=== PATIENT | male | born 1965 | race Caucasian/White ===

== ENCOUNTER 2023-01-02 13:29 | Emergency (ER) | payer SELFPAY ==
[2023-01-02 14:38] LABS: HEMATOCRIT 48.6 % (40.0-54.0); HEMOGLOBIN 16.8 g/dL (13.0-18.0); MEAN CORPUSCULAR HEMOGLOBIN 29.6 pg (27.0-32.0); MEAN CORPUSCULAR HGB CONC 34.6 g/dL (31.0-35.0); MEAN PLATELET VOLUME 9.9 fL (6.0-10.0); RED BLOOD CELL COUNT 5.67 M/uL (4.50-6.50); RED CELL DISTRIBUTION WIDTH 13.3 % (11.0-16.0); WHITE BLOOD CELL COUNT,WBC 19.4 K/uL (4.0-11.0)
[2023-01-02 14:57] LABS: ANION GAP 12.9 mmol/L (5.0-15.0); BLOOD UREA NITROGEN,BUN 29 mg/dL (8-26); BUN/CREATININE RATIO 22.8 (6-25); CALCIUM 10.4 mg/dL (8.5-10.1); CARBON DIOXIDE,CO2 27.9 mmol/L (21.0-32.0); CHLORIDE,CL 101 mmol/L (98-107); CREATININE 1.27 mg/dL (0.70-1.30); ESTIMATED GFR 66 mL/min (>60); GLUCOSE RANDOM 149 mg/dL (74-100); POTASSIUM,K 4.8 mmol/L (3.5-5.1); SODIUM,NA 137 mmol/L (136-145)
[2023-01-02] MEDS ORDERED: Iopamidol 612 MG/ML 100 ML Bottle IV PRN (15:13)
[2023-01-02] MEDS ORDERED: Sodium Chloride 0.9% 50 ML SDV FLUSH SCH (15:15)
[2023-01-02] MEDS ORDERED: Sodium Chloride 0.9% 1,000 ML IV SCH (15:15)
== END 2023-01-02 16:45 | disposition home or self-care (01) ==
LOC: LB.ED 13:29
DX: R04.2 Hemoptysis (principal); F17.200 Nicotine dependence, unspecified, uncomplicated; Z88.0 Allergy status to penicillin; Z79.01 Long term (current) use of anticoagulants
CPT/HCPCS: 36415; 71046; 71260; 80048; 85027; 96360; 99285-25; J3490; J7030; Q9967

== ENCOUNTER 2023-02-08 12:32 | Emergency (ER) | payer MEDICAID ==
[2023-02-08] MEDS ORDERED: fentaNYL 100 MCG/2 ML SDV IVPUSH PRN (13:11)
[2023-02-08 13:12] LABS: HEMATOCRIT 47.7 % (40.0-54.0); HEMOGLOBIN 16.3 g/dL (13.0-18.0); MEAN CORPUSCULAR HEMOGLOBIN 29.7 pg (27.0-32.0); MEAN CORPUSCULAR HGB CONC 34.2 g/dL (31.0-35.0); MEAN CORPUSCULAR VOLUME 87 fL (76-96); MEAN PLATELET VOLUME 9.5 fL (6.0-10.0); PLATELET COUNT,PLT 336 K/uL (150-400); RED BLOOD CELL COUNT 5.49 M/uL (4.50-6.50); RED CELL DISTRIBUTION WIDTH 13.8 % (11.0-16.0)
[2023-02-08 13:14] LABS: WHITE BLOOD CELL COUNT,WBC 23.2 K/uL (4.0-11.0)
[2023-02-08] MEDS ORDERED: fentaNYL 100 MCG/2 ML SDV ONE (13:22)
[2023-02-08] MEDS ORDERED: Midazolam 1 MG/ML 2 ML SDV ONE ×2 (13:22→13:32)
[2023-02-08 13:28] LABS: PLATELET COUNT ESTIMATE ADEQUATE
[2023-02-08] MEDS: Midazolam 1 MG/ML 2 ML SDV IVPUSH ONE ×2 (13:29→13:34)
[2023-02-08 13:32] LABS: INR 1.1 (1.0-3.5); PTT,PARTIAL THROMBOPLSTIN TIME 30.7 SECONDS (24.4-33.2)
[2023-02-08 13:34] LABS: PROTHROMBIN TIME 11.3 sec (9.0-11.5)
[2023-02-08] MEDS ORDERED: Amiodarone 450 MG/9 ML SDV IV ONE (13:42)
[2023-02-08] MEDS ORDERED: Diltiazem 25 MG/5 ML SDV IVPUSH ONE (13:44)
[2023-02-08] MEDS ORDERED: Amiodarone 150 MG in Dextrose 5% in Water 100 ML IV SCH ×2 (13:45)
[2023-02-08 13:48] LABS: A/G RATIO 0.6 (0.8-2.0); ANION GAP 11.6 mmol/L (5.0-15.0); BILIRUBIN TOTAL 0.6 mg/dL (0.0-1.0); CALCIUM 12.2 mg/dL (8.5-10.1); CARBON DIOXIDE,CO2 29.6 mmol/L (21.0-32.0); CREATININE 1.16 mg/dL (0.70-1.30); EST CRCL DRUG DOSING (CG) 74.83 mL/min; POTASSIUM,K 5.2 mmol/L (3.5-5.1); PROTEIN TOTAL,TP 8.1 g/dL (6.4-8.2); TROPONIN I HIGH SENSITIVITY 10.2 pg/ml (<=60.4)
[2023-02-08] MEDS ORDERED: Diltiazem 120 MG Cap.CD PO ONE (14:46)
== END 2023-02-08 15:05 | disposition home or self-care (01) ==
LOC: LB.ED 12:32
DX: I48.91 Unspecified atrial fibrillation (principal); I10 Essential (primary) hypertension; F17.210 Nicotine dependence, cigarettes, uncomplicated; Z88.0 Allergy status to penicillin; Z79.01 Long term (current) use of anticoagulants
CPT/HCPCS: 36415; 71045; 80053; 84443; 84484; 85025; 85610; 85730; 92960; 93005; 96374; 96375; 99285; A9270; J0282; J2250; J3010; J3490

== ENCOUNTER 2023-03-15 13:45 | Inpatient (IN) | payer MEDICAID ==
[2023-03-15 15:02] LABS: BASOPHILS ABSOLUTE AUTO 0.04 K/uL (0.02-0.10); BASOPHILS PERCENT AUTO 0.4 % (0.0-0.5); EOSINOPHILS PERCENT AUTO 0.9 % (1.0-5.0); HEMATOCRIT 37.8 % (40.0-54.0); HEMOGLOBIN 12.9 g/dL (13.0-18.0); LYMPHOCYTES PERCENT AUTO 12.8 % (20.0-40.0); MEAN CORPUSCULAR HEMOGLOBIN 29.8 pg (27.0-32.0); MEAN CORPUSCULAR HGB CONC 34.1 g/dL (31.0-35.0); MEAN CORPUSCULAR VOLUME 87 fL (76-96); MEAN PLATELET VOLUME 9.1 fL (6.0-10.0); MONOCYTES ABSOLUTE AUTO 1.12 K/uL (0.20-0.80); MONOCYTES PERCENT AUTO 10.3 % (3.0-10.0); NEUTROPHILS ABSOLUTE AUTO 8.24 K/uL (2.00-7.50); NEUTROPHILS PERCENT AUTO 75.6 % (45.0-70.0); PLATELET COUNT,PLT 370 K/uL (150-400); RED BLOOD CELL COUNT 4.33 M/uL (4.50-6.50); RED CELL DISTRIBUTION WIDTH 15.2 % (11.0-16.0); WHITE BLOOD CELL COUNT,WBC 10.9 K/uL (4.0-11.0)
[2023-03-15 15:27] LABS: BASE EXCESS ARTERIAL -1.5 (-2-2); BICARBONATE,ARTERIAL 21.7 mmol/L (22-26); O2 SATURATION ARTERIAL 98.3 % (95-98); PO2 ARTERIAL 97.4 mmHg (80-105)
[2023-03-15 15:28] LABS: A/G RATIO 0.5 (0.8-2.0); ALBUMIN 2.3 g/dL (3.4-5.0); ANION GAP 13.1 mmol/L (5.0-15.0); BILIRUBIN TOTAL 0.5 mg/dL (0.0-1.0); BUN/CREATININE RATIO 10.3 (6-25); CALCIUM 9.8 mg/dL (8.5-10.1); CARBON DIOXIDE,CO2 23.2 mmol/L (21.0-32.0); CREATININE 1.07 mg/dL (0.70-1.30); EST CRCL DRUG DOSING (CG) 73.69 mL/min; POTASSIUM,K 4.3 mmol/L (3.5-5.1); PROTEIN TOTAL,TP 6.8 g/dL (6.4-8.2)
[2023-03-15] MEDS ORDERED: cefTRIAXone 2 GM in Sodium Chloride 0.9% 100 ML IV ONE (17:42)
[2023-03-15] MEDS: Azithromycin 500 MG in Sodium Chloride 0.9% 250 ML IV SCH (19:44)
[2023-03-16] MEDS ORDERED: Montelukast 10 MG Tab PO ONE (07:40)
[2023-03-16 08:11] LABS: BASOPHILS ABSOLUTE AUTO 0.02 K/uL (0.02-0.10); BASOPHILS PERCENT AUTO 0.2 % (0.0-0.5); EOSINOPHILS ABSOLUTE AUTO 0.09 K/uL (0.04-0.40); EOSINOPHILS PERCENT AUTO 0.9 % (1.0-5.0); HEMATOCRIT 37.5 % (40.0-54.0); HEMOGLOBIN 12.4 g/dL (13.0-18.0); LYMPHOCYTES ABSOLUTE AUTO 1.11 K/uL (1.50-4.00); LYMPHOCYTES PERCENT AUTO 10.8 % (20.0-40.0); MEAN CORPUSCULAR HEMOGLOBIN 29.7 pg (27.0-32.0); MEAN CORPUSCULAR HGB CONC 33.1 g/dL (31.0-35.0); MEAN CORPUSCULAR VOLUME 90 fL (76-96); MEAN PLATELET VOLUME 9.8 fL (6.0-10.0); MONOCYTES ABSOLUTE AUTO 1.18 K/uL (0.20-0.80); MONOCYTES PERCENT AUTO 11.5 % (3.0-10.0); NEUTROPHILS ABSOLUTE AUTO 7.87 K/uL (2.00-7.50); NEUTROPHILS PERCENT AUTO 76.6 % (45.0-70.0); PLATELET COUNT,PLT 293 K/uL (150-400); RED BLOOD CELL COUNT 4.17 M/uL (4.50-6.50); RED CELL DISTRIBUTION WIDTH 15.3 % (11.0-16.0); WHITE BLOOD CELL COUNT,WBC 10.3 K/uL (4.0-11.0)
[2023-03-16] MEDS: Diltiazem 120 MG Cap.CD PO SCH (08:46)
[2023-03-16] MEDS: Escitalopram 20 MG Tab PO SCH (08:48)
[2023-03-16] MEDS: Multivitamins with Iron/Calcium/Folic Acid/Minerals Tab PO SCH (08:49)
[2023-03-16] MEDS: Nicotine 14 MG/24 Hr Patch TRDERM SCH (08:49)
[2023-03-16] MEDS: Apixaban 5 MG Tab PO SCH ×2 (08:49→19:17)
[2023-03-16] MEDS: Furosemide 20 MG Tab PO SCH (08:49)
[2023-03-16] MEDS: Amiodarone 200 MG Tab PO SCH (09:30)
[2023-03-16] MEDS: Sucralfate 1 GM Tab PO SCH ×3 (12:51→19:17)
[2023-03-16] MEDS: Azithromycin 500 MG in Sodium Chloride 0.9% 250 ML IV SCH (19:17)
[2023-03-17] MEDS: Diltiazem 120 MG Cap.CD PO SCH (08:02)
[2023-03-17] MEDS: Amiodarone 200 MG Tab PO SCH (08:02)
[2023-03-17] MEDS: Multivitamins with Iron/Calcium/Folic Acid/Minerals Tab PO SCH (08:03)
[2023-03-17] MEDS: Furosemide 20 MG Tab PO SCH (08:03)
[2023-03-17] MEDS: Apixaban 5 MG Tab PO SCH ×2 (08:03→20:26)
[2023-03-17] MEDS: Sucralfate 1 GM Tab PO SCH ×4 (08:03→20:26)
[2023-03-17] MEDS: Escitalopram 20 MG Tab PO SCH (08:04)
[2023-03-17] MEDS: Nicotine 14 MG/24 Hr Patch TRDERM SCH (08:05)
[2023-03-17] MEDS ORDERED: Polyethylene Glycol 3350 Powder 17 GM Packet PO PRN (17:53)
[2023-03-17] MEDS ORDERED: Azithromycin 500 MG Tab PO SCH (20:00)
[2023-03-18 07:30] LABS: BASOPHILS ABSOLUTE AUTO 0.03 K/uL (0.02-0.10); BASOPHILS PERCENT AUTO 0.3 % (0.0-0.5); EOSINOPHILS ABSOLUTE AUTO 0.08 K/uL (0.04-0.40); EOSINOPHILS PERCENT AUTO 0.7 % (1.0-5.0); HEMATOCRIT 38.5 % (40.0-54.0); HEMOGLOBIN 12.7 g/dL (13.0-18.0); LYMPHOCYTES ABSOLUTE AUTO 1.42 K/uL (1.50-4.00); LYMPHOCYTES PERCENT AUTO 12.9 % (20.0-40.0); MEAN CORPUSCULAR HEMOGLOBIN 29.5 pg (27.0-32.0); MEAN CORPUSCULAR VOLUME 89 fL (76-96); MEAN PLATELET VOLUME 9.1 fL (6.0-10.0); MONOCYTES ABSOLUTE AUTO 1.42 K/uL (0.20-0.80); MONOCYTES PERCENT AUTO 12.9 % (3.0-10.0); NEUTROPHILS ABSOLUTE AUTO 8.08 K/uL (2.00-7.50); NEUTROPHILS PERCENT AUTO 73.2 % (45.0-70.0); PLATELET COUNT,PLT 357 K/uL (150-400); RED BLOOD CELL COUNT 4.31 M/uL (4.50-6.50)
[2023-03-18] MEDS: Sucralfate 1 GM Tab PO SCH ×2 (08:07→10:27)
[2023-03-18] MEDS: Amiodarone 200 MG Tab PO SCH (08:08)
[2023-03-18] MEDS: Diltiazem 120 MG Cap.CD PO SCH (08:08)
[2023-03-18] MEDS: Nicotine 14 MG/24 Hr Patch TRDERM SCH (08:08)
[2023-03-18] MEDS: Apixaban 5 MG Tab PO SCH (08:08)
[2023-03-18] MEDS: Furosemide 20 MG Tab PO SCH (08:10)
[2023-03-18] MEDS: Multivitamins with Iron/Calcium/Folic Acid/Minerals Tab PO SCH (08:10)
[2023-03-18] MEDS: Escitalopram 20 MG Tab PO SCH (08:10)
[2023-03-18 08:45] LABS: A/G RATIO 0.5 (0.8-2.0); ALBUMIN 2.3 g/dL (3.4-5.0); ANION GAP 10.3 mmol/L (5.0-15.0); BILIRUBIN TOTAL 0.4 mg/dL (0.0-1.0); BUN/CREATININE RATIO 13.7 (6-25); CALCIUM 9.1 mg/dL (8.5-10.1); CARBON DIOXIDE,CO2 28.9 mmol/L (21.0-32.0); CREATININE 0.95 mg/dL (0.70-1.30); POTASSIUM,K 4.2 mmol/L (3.5-5.1); PROTEIN TOTAL,TP 6.7 g/dL (6.4-8.2)
[2023-03-18] MEDS ORDERED: Azithromycin 500 MG Tab ONE (10:30)
[2023-03-18 12:34] VITALS: BP 144/92; PULSE 90
== END 2023-03-18 12:45 | disposition home or self-care (01) | DRG 194 ==
LOC: LB.ED 13:45 → LB.MS 17:20
PROVIDERS: ADMIT Surgery; ATTEND Surgery
DX: J18.9 Pneumonia, unspecified organism (principal); C34.91 Malignant neoplasm of unspecified part of right bronchus or lung; F17.210 Nicotine dependence, cigarettes, uncomplicated; I48.91 Unspecified atrial fibrillation; I10 Essential (primary) hypertension; Z88.0 Allergy status to penicillin; Z79.01 Long term (current) use of anticoagulants; Z79.899 Other long term (current) drug therapy
CPT/HCPCS: 36415; 36600; 71045; 71046; 71250; 80053; 82803; 85025; 93005; 99222; 99232; 99239; A9270-GY; J0456; J0696; J3490; J7050

== ENCOUNTER 2023-07-12 13:46 | Emergency (ER) | payer MEDICAID | END 2023-07-12 14:10 | disposition home or self-care (01) | LOC: LB.ED 13:46 | DX: C34.91 Malignant neoplasm of unspecified part of right bronchus or lung (principal); I10 Essential (primary) hypertension; I48.91 Unspecified atrial fibrillation; Z79.01 Long term (current) use of anticoagulants; Z79.899 Other long term (current) drug therapy; Z88.0 Allergy status to penicillin | CPT/HCPCS: 99283; 99284 ==